=== PATIENT | female | born 2000 | race Caucasian/White ===

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

== ENCOUNTER 2023-02-05 16:10 | Emergency (ER) | payer OTHER ==
[~2023-02-05] VITALS: Ht 160 cm; Wt 96.6 kg
[~2023-02-05 16:10] MED LIST: AMOX500C25 PO; ONDA-188 PO
[2023-02-05 16:54] VITALS: BP 147/90
--- NOTE | 2023-02-05 17:02 | NUR ---
PT TO LOBBY
--- NOTE | 2023-02-05 17:18 | NUR ---
MD GAMBLE EVALUATING PT
--- NOTE | 2023-02-05 17:19 | NUR ---
PT AMBULATED TO BED 6
--- NOTE | 2023-02-05 17:20 | NUR ---
lab at bedside
--- NOTE | 2023-02-05 17:30 | NUR ---
22YO FEMALE PT C/O INTERMITTENT CRAMPING LOWER ABD PAIN [id number]. PAIN AT MOST WHEN SITTING STILL FOR LONG PERIODS OF TIME. REPORTS LIGHT/PINK VAGINAL BLEEDING X4DAYS. LMP 01/21/23. DENIES N/V/D, FEVER,CHILLS OR TAKING MEDICATION. PT AAOX4, HOB POSITONED PER COMFORT HX: DENIES NKA
[2023-02-05 17:38] LABS: APPEARANCE,URINE CLEAR (CLEAR); BILIRUBIN,URINE 1+ (NEGATIVE); BLOOD, URINE 3+ (NEGATIVE); LEUKOCYTE ESTERASE ,URINE NEGATIVE (NEGATIVE); NITRITE, URINE POSITIVE (NEGATIVE); UGLUCOSE NEGATIVE (NEGATIVE)
[2023-02-05 17:39] LABS: BASOPHILS # (AUTO) 0.1 K/uL (0.00-0.22); BASOPHILS % (AUTO) 0.6 % (0.0-2.0); EOSINOPHILS # (AUTO) 0.1 K/uL (0-0.4); EOSINOPHILS % (AUTO) 0.7 % (0.0-4.0); HEMATOCRIT 36.8 % (36-48); HEMOGLOBIN 11.7 g/dL (12.0-16.0); LYMPHOCYTES # (AUTO) 4.2 K/uL (2.5-16.5); LYMPHOCYTES % (AUTO) 38.5 % (20.5-51.1); MEAN CORPUSCULAR HEMOGLOBIN 23 pg (27-31); MEAN CORPUSCULAR HGB CONC 32 g/dL (33-37); MEAN CORPUSCULAR VOLUME 71.3 fL (80-94); MONOCYTES # (AUTO) 0.8 K/uL (0.8-1.0); MONOCYTES % (AUTO) 7.6 % (1.7-9.3); NEUTROPHILS # (AUTO) 5.8 K/uL (1.8-7.7); NEUTROPHILS % (AUTO) 52.6 % (42.2-75.2); PLATELET COUNT (AUTO) 387 K/uL (140-450); RED BLOOD CELL COUNT(AUTO) 5.16 MIL/uL (4.20-5.40); RED CELL DISTRIBUTION WIDTH 19.1 % (11.6-13.7)
[2023-02-05 17:48] LABS: COLOR,URINE BROWN (YELLOW)
[2023-02-05 17:54] LABS: RBC,URINE 11-20 (MOD) /HPF (0-5); WBC,URINE 0-5 /HPF (0-5)
[2023-02-05 17:55] LABS: ALBUMIN 3.6 g/dL (3.4-5.0); ANION GAP 9.5 (8-16); CARBON DIOXIDE 29.2 mmol/L (21-32); CREATININE 0.7 mg/dL (0.6-1.3); POTASSIUM 3.7 mmol/L (3.5-5.1); TOTAL BILIRUBIN 0.2 mg/dL (0.0-1.0)
[2023-02-05 18:18] VITALS: BP 128/76
[2023-02-05] MEDS ORDERED: CEPH-588 PO (18:50)
[2023-02-05] MEDS ORDERED: ACET-10509 PO (18:50)
--- NOTE | 2023-02-05 19:04 | NUR ---
Patient discharged with v/s stable. Written and verbal after care instructions FOR UTI AND ABNORMAL UTERINE BLEEDING given and explained. Patient alert, oriented and verbalized understanding of instructions. Ambulatory with steady gait. All questions addressed prior to discharge. ID band removed. Patient advised to follow up with PMD. Rx of TYLENOL XTRA STRENGTH AND KELFEX given. Opportunity to ask questions provided and answered.
--- NOTE | 2023-02-05 19:07 | NUR ---
The patient's care was reviewed and supervised by Martha Burr RN.
== END 2023-02-05 19:04 | disposition home or self-care (01) ==
LOC: MED 16:10
DX: N39.0 Urinary tract infection, site not specified (principal); N93.9 Abnormal uterine and vaginal bleeding, unspecified; Z79.899 Other long term (current) drug therapy
CPT/HCPCS: 36415; 80053; 81001; 81025; 83690; 85025; 87086; 99283